=== PATIENT | male | born 1970 ===

== ENCOUNTER 2019-06-02 11:37 | Emergency (ER) | payer SELFPAY ==
[~2019-06-02] VITALS: Ht 188 cm; Wt 108.9 kg
[2019-06-02] MEDS ORDERED: Naloxone 1mg/ml 2ml IVP ONE (12:00)
--- NOTE | 2019-06-02 12:00 | NUR ---
ED Nurse Note:pt. was BIBA from his apartment building unconseous, he is responsive to shaking and pain, blood and urine sent to labs and pt. placed on cardiac monitorrrr, VSS
[2019-06-02 12:14] VITALS: BP 111/54
[2019-06-02 12:14] LABS: BASOPHILS % (AUTO) 0.9 % (0.0-2.0); EOSINOPHILS % (AUTO) 2.7 % (0.0-3.0); HEMATOCRIT 40.1 % (42.0-52.0); HEMOGLOBIN 12.9 G/DL (14.2-18.0); LYMPHOCYTES % (AUTO) 12.7 % (20.0-45.0); MEAN CORPUSCULAR VOLUME 95 FL (80-99); MONOCYTES % (AUTO) 8.6 % (1.0-10.0); NEUTROPHILS % (AUTO) 75.1 % (45.0-75.0); PLATELET COUNT 190 K/UL (150-450); RED BLOOD COUNT 4.24 M/UL (4.70-6.10); RED CELL DISTRIBUTION WIDTH 13.3 % (11.6-14.8); WHITE BLOOD COUNT 9.9 K/UL (4.8-10.8)
--- NOTE | 2019-06-02 12:27 | Emergency Room Report ---
History of Present Illness General Chief Complaint: Syncope Source: EMS (Patrice Iqbal MD) Present Illness HPI Patient is a 48-year-old male brought in by EMS after increased altered level of consciousness. Patient had been noted to be unresponsive outside of an apartment. He had been noted to have pinpoint pupils and was given 2 mg of Narcan by paramedics. He had some resulting improvement in his respiratory rate. Patient had continued to be somnolent. He was noted to have any recent trauma. History is markedly limited by patient's mental status. (Patrice Iqbal MD) Allergies: Coded Allergies: UNABLE TO ASSESS (Unverified , 06/02/19) Patient History Past Medical History: see triage record Reviewed Nursing Documentation: PMH: Agreed; PSxH: Agreed (Patrice Iqbal MD) Nursing Documentation-PMH Past Medical History: Deferred (Patrice Iqbal MD) Review of Systems All Other Systems: limited - Review of systems: Review systems is limited by patient's being a poor historian (Patrice Iqbal MD) Physical Exam Vital Signs Date Time Temp Pulse Resp B/P (MAP) Pulse Ox O2 Delivery O2 Flow Rate FiO2 06/02/19 11:31 97.2 70 17 90/45 (60) 100 Non-Rebreather 15.0 Sp02 EP Interpretation: reviewed, normal General Appearance: normal inspection, alert, lethargic Head: atraumatic Eyes: bilateral eye other - pupils pinpoint ENT: normal ENT inspection, hearing grossly normal, normal voice Neck: normal inspection, full range of motion, supple, no bony tend Respiratory: normal inspection, lungs clear, normal breath sounds, no respiratory distress, no retraction, no wheezing Cardiovascular #1: regular rate, rhythm, no edema Gastrointestinal: normal inspection, normal bowel sounds, non tender, soft, no guarding, no hernia Genitourinary: no CVA tenderness Musculoskeletal: normal inspection, back normal, normal range of motion Neurologic: normal inspection, alert, oriented x3, responsive, fireman III-XII nml as tested, speech normal Psychiatric: normal inspection, judgement/insight normal, mood/affect normal (Patrice Iqbal MD) Sp02 EP Interpretation: reviewed, normal General Appearance: well appearing, no apparent distress, alert Head: normocephalic, atraumatic Eyes: bilateral eye PERRL, bilateral eye EOMI ENT: uvula midline, moist mucus membranes Neck: supple, thyroid normal, supple/symm/no masses Respiratory: lungs clear, no respiratory distress, no retraction, no accessory muscle use Cardiovascular #1: normal peripheral pulses, regular rate, rhythm, no edema, no gallop, no murmur Gastrointestinal: non tender, soft, no guarding, no rebound Musculoskeletal: normal inspection Neurologic: alert, oriented x3 Psychiatric: mood/affect normal Skin: no rash, warm/dry (Chester Schaffer MD) Medical Decision Making Diagnostic Impression: Primary Impression: Cocaine use ER Course Patient presented for altered mental status. Differential diagnosis include was not limited to overdose, CVA, encephalitis, subsequent abuse among others. Because of complexity of patient's case laboratory tests and imaging studies were ordered. CT of the head read by radiology showed no evidence of acute intracranial hemorrhage. Patient's history is markedly limited by mental status. He appears to be somewhat somnolent and attempt to place a nasal trumpet. Patient subsequently grabbed at this with his hands and made some coherent verbal statements. He immediately became more somnolent again. Patient was given Narcan second time with minimal change in his status. Patient was observed in the emergency department and had gradually improving mental status. He was noted to be more awake and able to converse. Patient will be endorsed to Dr. Schaffer pending sobering. (Patrice Iqbal MD) ER Course Reevaluation 4:17 PM, patient is sober, patient feels better after hydration, Patient denies taking anything in particular, cannot remember, CT brain is negative, tox screen is positive for cocaine, counseled patient about drug use, disposition home with return precautions Laboratory Tests Test 06/02/19 11:45 White Blood Count 9.9 K/UL (4.8-10.8) Red Blood Count 4.24 M/UL (4.70-6.10) L Hemoglobin 12.9 G/DL (14.2-18.0) L Hematocrit 40.1 % (42.0-52.0) L Mean Corpuscular Volume 95 FL (80-99) Mean Corpuscular Hemoglobin 30.4 PG (27.0-31.0) Mean Corpuscular Hemoglobin Concent 32.1 G/DL (32.0-36.0) Red Cell Distribution Width 13.3 % (11.6-14.8) Platelet Count 190 K/UL (150-450) Mean Platelet Volume 6.9 FL (6.5-10.1) Neutrophils (%) (Auto) 75.1 % (45.0-75.0) H Lymphocytes (%) (Auto) 12.7 % (20.0-45.0) L Monocytes (%) (Auto) 8.6 % (1.0-10.0) Eosinophils (%) (Auto) 2.7 % (0.0-3.0) Basophils (%) (Auto) 0.9 % (0.0-2.0) Prothrombin Time 10.5 SEC (9.30-11.50) Prothrombin Time INR 1.0 (0.9-1.1) PTT 26 SEC (23-33) Sodium Level 138 MMOL/L (136-145) Potassium Level 3.6 MMOL/L (3.5-5.1) Chloride Level 104 MMOL/L (98-107) Carbon Dioxide Level 28 MMOL/L (21-32) Anion Gap 6 mmol/L (5-15) Blood Urea Nitrogen 15 mg/dL (7-18) Creatinine 1.7 MG/DL (0.55-1.30) H Estimate Glomerular Filtration Rate 42.9 mL/min (>60) Glucose Level 119 MG/DL (74-106) H Calcium Level 9.0 MG/DL (8.5-10.1) Total Bilirubin 0.3 MG/DL (0.2-1.0) Aspartate Amino Transferase (AST) 19 U/L (15-37) Alanine Aminotransferase (ALT) 21 U/L (12-78) Alkaline Phosphatase 66 U/L (46-116) Total Protein 7.1 G/DL (6.4-8.2) Albumin 3.6 G/DL (3.4-5.0) Globulin 3.5 g/dL Albumin/Globulin Ratio 1.0 (1.0-2.7) Triglycerides Level 60 MG/DL (30-150) Cholesterol Level 132 MG/DL (< 200) LDL Cholesterol 41 mg/dL (<100) HDL Cholesterol 78 MG/DL (40-60) H Cholesterol/HDL Ratio 1.7 (3.3-4.4) L Urine Opiates Screen Negative (NEGATIVE) Urine Barbiturates Screen Negative (NEGATIVE) Phencyclidine (PCP) Screen Negative (NEGATIVE) Urine Amphetamines Screen Negative (NEGATIVE) Urine Benzodiazepines Screen Negative (NEGATIVE) Urine Cocaine Screen Positive (NEGATIVE) H Urine Marijuana (THC) Screen Negative (NEGATIVE) Serum Alcohol < 3 mg/dL (Chester Schaffer MD) Rhythm Strip Diag. Results Rhythm Strip Time: 16:17 EP Interpretation: yes Rate: 67 Rhythm: NSR, no PVC's, no ectopy (Chester Schaffer MD) CT/MRI/US Diagnostic Results CT/MRI/US Diagnostic Results : Impression Procedure: CT Head no Contrast EXAM: CT Head Without Intravenous Contrast CLINICAL HISTORY: AMS TECHNIQUE: Axial computed tomography images of the head brain without intravenous contrast. CTDI is 60 mGy and DLP is 1424.1 mGy-cm. One or more of the following dose reduction techniques were used: automated exposure control, adjustment of the mA and or kV according to patient size, use of iterative reconstruction technique. COMPARISON: No relevant prior studies available. FINDINGS: Brain: No hemorrhage. No edema. Ventricles: No ventriculomegaly. Bones joints: No acute skull fracture. Nasal fracture of uncertain chronicity. Soft tissues: Unremarkable. Sinuses: No acute sinusitis. Mastoid air cells: No mastoid effusion. IMPRESSION: No acute intracranial process. Dictated By: Lucien Hardin MD Electronically Signed By: Lucien Hardin MD Signed Date/Time 06/02/19 1230 CC: Patrice Iqbal MD (Chester Schaffer MD) Last Vital Signs Date Time Temp Pulse Resp B/P (MAP) Pulse Ox O2 Delivery O2 Flow Rate FiO2 06/02/19 12:14 97.2 73 19 111/54 96 Room Air 06/02/19 11:31 15.0 (Patrice Iqbal MD) Disposition: HOME, SELF-CARE Condition: Stable Scripts Unable to Obtain Active Prescriptions or Reported Meds [facility] Patient Instructions: Stimulant Use Disorder-Cocaine Additional Instructions: The patient was provided with discharge instructions, notified to follow-up with a primary care doctor and or specialist in the next 24-48 hours, and to return to the ED if they have worsening of their symptoms. Please note that this report is being documented using [employer] technology. This can lead to erroneous entry secondary to incorrect interpretation by the dictating instrument. Patrice Iqbal MD Jun 02, 2019 12:27 Chester Schaffer MD Jun 02, 2019 16:19
[2019-06-02 12:29] LABS: ANION GAP 6 mmol/L (5-15); BLOOD UREA NITROGEN 15 mg/dL (7-18); CARBON DIOXIDE 28 MMOL/L (21-32); CHLORIDE 104 MMOL/L (98-107); CREATININE 1.7 MG/DL (0.55-1.30); POTASSIUM 3.6 MMOL/L (3.5-5.1); SODIUM 138 MMOL/L (136-145)
--- NOTE | 2019-06-02 12:31 | Diagnostic Imaging Report ---
EXAM: CT Head Without Intravenous Contrast CLINICAL HISTORY: AMS TECHNIQUE: Axial computed tomography images of the head brain without intravenous contrast. CTDI is 60 mGy and DLP is 1424.1 mGy-cm. One or more of the following dose reduction techniques were used: automated exposure control, adjustment of the mA and or kV according to patient size, use of iterative reconstruction technique. COMPARISON: No relevant prior studies available. FINDINGS: Brain: No hemorrhage. No edema. Ventricles: No ventriculomegaly. Bones joints: No acute skull fracture. Nasal fracture of uncertain chronicity. Soft tissues: Unremarkable. Sinuses: No acute sinusitis. Mastoid air cells: No mastoid effusion. IMPRESSION: No acute intracranial process.
[2019-06-02 12:36] LABS: ALANINE AMINOTRANSFERASE 21 U/L (12-78); ALBUMIN 3.6 G/DL (3.4-5.0); ALKALINE PHOSPHATASE 66 U/L (46-116); ASPARTATE AMINO TRANSFERASE 19 U/L (15-37); BILIRUBIN,TOTAL 0.3 MG/DL (0.2-1.0); CHOLESTEROL 132 MG/DL (< 200); HDL CHOLESTEROL 78 MG/DL (40-60); TRIGLYCERIDES 60 MG/DL (30-150)
--- NOTE | 2019-06-02 13:20 | NUR ---
ED Nurse Note: pt was moved to bed 2 due to trauma room needs to be emptied. no acute distress noted at this time.
[2019-06-02 14:07] VITALS: BP 98/58
--- NOTE | 2019-06-02 14:07 | NUR ---
ED Nurse Note: pt snoring and sleeping in bed. no acute distress noted. ERMD assessed pt and decided to admit pt to SDU. pt unable to wake up. vital signs stable as documented.
--- NOTE | 2019-06-02 14:14 | NUR ---
ED Nurse Note: pt woke up and tried to get up. pt was redirected to lay down and rest. pt back to sleep and snoring.
--- NOTE | 2019-06-02 14:50 | NUR ---
ED Nurse Note: KIANA at bedside. pt woke up but unable to verbalize his name. body temp orally 97F. reported to KIANA.
--- NOTE | 2019-06-02 15:17 | NUR ---
ED Nurse Note: KIANA spoke to pt. pt able to answer the questions. will dc when pt is sober.
[2019-06-02 16:39] VITALS: BP 109/54
--- NOTE | 2019-06-02 16:40 | NUR ---
ED Nurse Note: Pt cleared by health care Provider for discharge. DC instructions/prescription was given and explained to pt and verbalized understanding of teachings. All medical deviecs such as ID band removed. Pt is AAO x4, ambulatory and left with all personal belongings. sandwich and water and new jacket provided. pt is not homeless.
--- NOTE | 2019-06-05 16:56 | Cardiology Report ---
APPROVED REPORT EKG Measurement Heart [id number] MI [id number] Normal sinus rhythm T wave abnormality, consider inferior ischemia Abnormal ECG
== END 2019-06-02 16:41 | disposition home or self-care (01) ==
LOC: EDBD 11:37 → EMR 12:05 → CANBEDREQ 16:14 → EMR 16:41
DX: F14.10 Cocaine abuse, uncomplicated (principal)
CPT/HCPCS: 36415; 70450; 80053; 80061; 80307; 82962; 85025; 85610; 85730; 93005; 96374; 99284; G0480; J2310